=== PATIENT | female | born 1995 | race Caucasian/White ===

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

== ENCOUNTER → 2018-09-01 21:10 | Emergency (ER) | payer BC, OTHER ==
[2018-09-01 21:14] VITALS: BP 132/84
--- NOTE | 2018-09-01 21:32 | ED ---
Laceration/Wound HPI - HPI Summary HPI Summary: 23 yo female presents to [facility] ED with laceration. She tells me that just [employer] she was taking out the garbage and a piece of glass fell and lacerated her left calf. She bandaged the area and came to the ED. She thinks her last tetanus was within the last 2-3 years for college. - History of Current Complaint Stated Complaint: LEFT LEG LACERATION PER PT Time Seen by Provider: 09/01/18 21:32 Hx Obtained From: Patient Hx Last Menstrual Period: Unknown Onset/Duration: Sudden Onset Onset Severity: Mild Current Severity: Mild Pain Intensity: 2 Pain Scale Used: 0-10 Numeric - Allergy/Home Medications Allergies/Adverse Reactions: Allergies Allergy/AdvReac Type Severity Reaction Status Date / Time No Known Allergies Allergy Verified 09/01/18 21:12 PMH/Surg Hx/FS Hx/Imm Hx Endocrine/Hematology History: Denies: Hx Diabetes, Hx Thyroid Disease Cardiovascular History: Denies: Hx Hypertension Respiratory History: Denies: Hx Asthma, Hx Chronic Obstructive Pulmonary Disease (COPD) GI History: Denies: Hx Cirrhosis, Hx Crohn's Disease, Hx Diverticulosis, Hx Gall Bladder Disease, Hx Gastroesophageal Reflux Disease, Hx Gastrointestinal Bleed, Hx Hiatal Hernia, Hx Irritable Bowel, Hx Obstructive Bowel, Hx Ulcer History: Reports: Hx Renal Disease - IN CONJUNCTION WITH ANOREXIA/BULLEMIA Denies: Hx Kidney Infection, Hx Kidney Stones Psychiatric History: Reports: Hx Anxiety, Hx Attention Deficit Hyperactivity Disorder, Other Psychiatric Issues/Disorders - anorexia, bulemia - Surgical History Surgical History: Yes Surgery Procedure, Year, and Place: Adenoidectomy at age 7 yrs; [place] Teeth extraction. Infectious Disease History: No Infectious Disease History: Denies: Hx Hepatitis, Hx Human Immunodeficiency Virus (HIV), History Other Infectious Disease - STD's, Traveled Outside the [place] in Last 30 Days - Family History Known Family History: Positive: Other - parents adopted Negative: Hypertension Family History: no reported cardiovascular issues in family lineage - Social History Occupation: Student Lives: With Family Alcohol Use: Weekly Alcohol Amount: weekend drinking - 4-5 drinks Substance Use Type: Reports: Cocaine - not currently, Other Substance Use Comment - Amount & Last Used: Recreational Adderall -daily, 100mg Hx Tobacco Use: Yes Smoking Status (MU): Current Some Day Smoker - couple of times a month Review of Systems Constitutional: Negative Cardiovascular: Negative Respiratory: Negative Gastrointestinal: Negative Musculoskeletal: Negative Skin: Other - Left calf laceration Neurological: Negative Psychological: Normal All Other Systems Reviewed And Are Negative: Yes Physical Exam - Summary Physical Exam Summary: GENERAL: NAD. WDWN. No pain distress. SKIN: LEFT CALF: 7.5cm linear laceration just through the epidermis. Scant bleeding. Clean wound without FB. NTTP. CHEST: No accessory muscle use. Breathing comfortably and in no distress. CV: Pulses intact. Cap refill <2seconds NEURO: Alert. PSYCH: Age appropriate behavior. Triage Information Reviewed: Yes Vital Signs On Initial Exam: Initial Vitals Temp Pulse Resp BP Pulse Ox 98.2 F 81 16 132/84 100 09/01/18 21:11 09/01/18 21:11 09/01/18 21:11 09/01/18 21:11 09/01/18 21:11 Vital Signs Reviewed: Yes Procedures - Laceration/Wound Repair 1 Location: lower extremity Description: Linear Anesthesia: 1.0% Length, Depth and Shape: 7.5cm length 2-3mm depth Irrigated w/ Saline (ccs): 200 Laceration/Wound Explored: clean Closure: Single Layer Suture Type: Prolene - 5-0 Number of Sutures: 12 - running suture throws Sterile Dressing Applied?: Yes Diagnostics - Vital Signs Vital Signs Temp Pulse Resp BP Pulse Ox 09/01/18 21:11 98.2 F 81 16 132/84 100 - Laboratory Lab Statement: Any lab studies that have been ordered have been reviewed, and results considered in the medical decision making process. Laceration Repair Course/Dx - Course Course Of Treatment: The procedure was explained to the pt and all questions were answered. A time out was performed, witnessed, and signed. The area was irrigated with 200mL sterile saline. 2mL of 1% lidocaine without epi was administered and good anesthetization was achieved. In the usual sterile fashion , 5-0 prolene running suture was placed with 12 throws. The wound was bandaged with telfa . Pt tolerated procedure well. - Clinical Impression Provider Diagnoses: Laceration of left lower leg Discharge - Sign-Out/Discharge Documenting (check all that apply): Patient Departure Patient Received Moderate/Deep Sedation with Procedure: No - Discharge Plan Condition: Stable Disposition: HOME Patient Education Materials: Care For Your Stitches (DC), Laceration (DC) Referrals: Lorena Hansen MD [Primary Care Provider] - Additional Instructions: 1) Please keep the area bandaged, clean, dry, and intact for the next 24- 48hours and then keep covered daily with a bandaged until sutures are removed. 2) If you develop a fever, colored or thick discharge, increased pain or swelling - please call your PCP or return for a wound check. 3) Please return in 10-12 days to have your sutures removed. - Billing Disposition and Condition Condition: STABLE Disposition: Home
== END | disposition home or self-care (01) ==
LOC: ED 21:10
DX: S81.812A Laceration without foreign body, left lower leg, initial encounter (principal); W25.XXXA Contact with sharp glass, initial encounter; Y92.9 Unspecified place or not applicable; F17.210 Nicotine dependence, cigarettes, uncomplicated
CPT/HCPCS: 12002; 99281